=== PATIENT | male | born 1985 | race Caucasian/White ===

== ENCOUNTER 2022-11-30 17:00 | Outpatient (CLI) | payer OTHER, SELFPAY | END 2022-11-30 17:01 | disposition home or self-care (01) | LOC: NFLDREF 12-04 13:03 | PROVIDERS: Visit Provider Nurse Practitioner Family | DX: R19.7 Diarrhea, unspecified (principal); K21.9 Gastro-esophageal reflux disease without esophagitis | CPT/HCPCS: 87505 ==